=== PATIENT | female | born 1965 | race African-American/Black ===

== ENCOUNTER 2018-05-01 08:09 | Day surgery (SDC) | payer BC, OTHER ==
[2018-05-01] MEDS ORDERED: MIDAZOLAM 1 MG/ML 2 ML INJ ×3 (10:14)
[2018-05-01] MEDS ORDERED: FENTAnyl 50 MCG/ML VIAL (10:14)
== END 2018-05-01 11:02 | disposition home or self-care (01) ==
LOC: GIL 08:09
DX: Z12.11 Encounter for screening for malignant neoplasm of colon (principal); D12.6 Benign neoplasm of colon, unspecified; K64.8 Other hemorrhoids
CPT/HCPCS: 45385; 84703; 88305